=== PATIENT | female | born 1960 | race Caucasian/White ===

== ENCOUNTER 2019-03-16 11:32 | Observation (INO) | payer BC ==
[~2019-03-16] VITALS: Ht 154.9 cm; Wt 72.7 kg
[2019-03-16] VITALS (16 sets, daily range): BP systolic 126–154; BP diastolic 65–79; PULSE 63–85; RESP 13–22; Ht 154.9 cm; Wt 72.7 kg
[~2019-03-16 11:32] MED LIST: CALC-72 PO
--- NOTE | 2019-03-16 11:40 | HPN ---
Date/Time of Note Date/Time of Note DATE: 03/16/19 TIME: 11:40 Interval H&P Admission Note Pt. seen H&P reviewed: No system changes SHLOMO HOLLY MD Mar 16, 2019 11:40
--- NOTE | 2019-03-16 14:55 | PREAC ---
Date/Time of Note Date/Time of Note DATE: 03/16/19 TIME: 14:53 Anesthesia Eval and Record Evaluation Time Pre-Procedure Interview DATE: 03/16/19 TIME: 14:53 Age 58 Sex female NPO: 8 hrs Preoperative diagnosis thyroid mass Planned procedure total thyroidectomy Past Medical History Past Medical History: Includes Endo: Hypothyroid Surgery & Anesthesia Issues No known issue Meds Anticoagulation: No Beta Vikas within 24 hr: No Reason Beta Vikas not given: Pt. not on B-Vikas Meds reviewed: Yes Allergies Coded Allergies: No Known Allergy (Unverified , 03/15/19) Allergies Reviewed: Yes Labs/Studies Labs Reviewed: Reviewed by anesthesiologist test: Negative Pre-procedure Exam Last vitals Vital Signs Date Temp Pulse Resp B/P (MAP) Pulse Ox O2 O2 Flow FiO2 Time Delivery Rate 03/16/19 97.6 63 16 126/79 97 Room Air 12:23 (95) Airway: Adequate mouth opening, Adequate thyromental dist Mallampati: Mallampati II Teeth: Normal Lung: Normal Heart: Normal ASA Physical Status ASA physical status: 2 Emergency: None Planned Anesthetic General/MAC: ETT Planned Pain Management Parenteral pain med Pre-operative Attestations Prior to commencing anesthesia and surgery, the patient was re-evaluated, there was verification of: *The patient's identity *The results of appropriate recent lab work and preoperative vital signs *The above evaluation not changing prior to induction *Anesthetic plan, risk benefits, alternative and complications discussed with patient/family; questions answered; patient/family understands, accepts and wishes to proceed. MARIO DAMON Mar 16, 2019 14:55
[2019-03-16] MEDS ORDERED: THROMBIN 5000 UNIT (RECOTHROM) VIAL ONE (15:27)
[2019-03-16] MEDS ORDERED: LIDOCAINE 1%/EPI 30 ML INJ ONE (15:27)
[2019-03-16] MEDS ORDERED: GELATIN SIZE 100 SPONGE ONE (15:28)
[2019-03-16] MEDS ORDERED: FENTAnyl 50 MCG/ML VIAL ONE (15:49)
[2019-03-16] MEDS ORDERED: LIDOCAINE 2% (SDV) 5 ML INJ ONE (15:56)
[2019-03-16] MEDS ORDERED: SUCCINYLCHOLINE CHLORIDE 100 MG/5 ML SYG IV ONE (15:56)
[2019-03-16] MEDS ORDERED: CEFAZOLIN 1 GM INJ ONE (15:56)
[2019-03-16] MEDS ORDERED: PROPOFOL 20 ML ONE (15:56)
[2019-03-16] MEDS ORDERED: DEXAMETHASONE 4 MG/ML 5 ML INJ ONE (15:57)
[2019-03-16] MEDS ORDERED: ONDANSETRON 4 MG INJ ONE (15:58)
[2019-03-16] MEDS ORDERED: morphine 10 MG INJ ONE (16:04)
--- NOTE | 2019-03-16 19:04 | SIPON ---
Date/Time of Note Date/Time of Note DATE: 03/16/19 TIME: 19:03 Operative Report Preoperative Diagnosis Thyroid cancer Postoperative Diagnosis Same Operation/Procedure Performed Total thyroidectomy with central and superior mediastinal dissection Surgeon Alonzo Holly MD and Chava Gao MD retail assistant manager None Anesthesia: general Estimated blood loss: minimal Transfusion Required none Specimen Total thyroidectomy Grafts/Implants none Complications none ALONZO HOLLY MD Mar 16, 2019 19:04
--- NOTE | 2019-03-16 19:05 | PAC ---
Date/Time of Note Date/Time of Note DATE: 03/16/19 TIME: 19:05 Post-Anesthesia Notes Post-Anesthesia Note Last documented vital signs Vital Signs Date Temp Pulse Resp B/P (MAP) Pulse Ox O2 O2 Flow FiO2 Time Delivery Rate 03/16/19 97.6 63 16 126/79 97 Room Air 1905 (95) Activity: WNL Respiratory function: WNL Cardiovascular function: WNL Mental status: Baseline Pain reasonably controlled: Yes Hydration appropriate: Yes Nausea/Vomiting absent: Yes MARIO DAMON Mar 16, 2019 19:05
--- NOTE | 2019-03-16 19:15 | OPR ---
Date/Time of Note Date/Time of Note DATE: 03/16/19 TIME: 19:04 Operative Report Procedure Date: Mar 16, 2019 Preoperative Diagnosis Thyroid cancer Postoperative Diagnosis Same Operation/Procedure Performed Total thyroidectomy with central and superior mediastinal dissection Surgeon Alonzo Holly MD and Chava Gao MD Finishing Machine Tender None Anesthesia Type: general Estimated Blood Loss: minimal Transfusion none Specimen Total thyroid Grafts/Implants none Complications none Pt Condition Post Procedure: stable Disposition: PACU Indications The patient is a 58-year-old female with a history of a left thyroid nodule with an FNA consistent with carcinoma. Recommendation was made for surgery. We discussed potentially doing a hemithyroidectomy if there is no obvious extracapsular invasion. She consented for a total thyroidectomy if we indeed found the tumor to be grossly involved with adjacent structures. The risks, benefits and alternatives of surgery were discussed which include but not limited to bleeding, infection, pain, scar, change in voice, damage to the either the recurrent or superior laryngeal nerves, need for lifelong hormone replacement, hypoparathyroidism, recurrence of cancer, and need for adjuvant therapy. She understood these and signed consent. Procedure Description After informed consent was obtained, the patient was brought back to the operating room. She was intubated with a laryngeal nerve monitoring tube and sedated. The automated access systems technician was present for the entire case. Once sedated, the patient neck was extended with a shoulder roll. A 6 cm incision was marked in a relaxed skin tension line below the cricoid cartilage. The area was prepped and draped in usual sterile fashion. A 15 blade was used to make the incision down through the platysmal layer. The strap muscles were then divided in the midline. Medially we encountered that the strap muscles were densely adherent to the left isthmus nodule. We first turned our attention to the right side. The strap muscles were retracted laterally and a tonsil clamp was used to retract the superior pole inferiorly. Care was taken to stay adjacent to the thyroid capsule. The superior pole vessels were dissected and ligated with the harmonic scalpel. Next we turned our attention to the middle pole vessels which we ligated with the harmonic scalpel followed by the inferior pole vessels. As we rotated the gland medially we identified the inferior parathyroid gland and preserved with its blood supply intact. We then identified the recurrent rene ngeal nerve in the tracheoesophageal groove and stimulated to confirm its presence. We then followed the nerve up towards the larynx. We then identified the superior parathyroid gland and preserved with its blood supply intact. The remaining attachments of the thyroid at Navarrete's ligament were ligated. We then turned our attention to the left side. A cuff of strap muscle was taken in order to free up the firm left-sided nodule from the strap muscles upon doing so we were then able to visualize the superior pole which we dissected out and ligated with harmonic scalpel. We then found that there was an additional nodule inferior to the nodule in question in the superior mediastinum that was densely adherent, holding the gland down. This limited the mobility of the gland. We therefore then elected to find the nerve at the upper tracheoesophageal groove. This was done very carefully until we came down and identified the nerve. This stimulated very well. We then followed the nerve down towards the mediastinum. This was a long tedious dissection that took approximately 1-1/2 hours. By doing so we were able to slowly dissect the 2 rock-hard nodules away from the nerve. We were also able to dissect them free from the superior mediastinal structures. We were able to preserve the superior parathyroid gland with its blood supply intact. However we did not visualize the inferior parathyroid gland on that side. Once the entire mass was removed the specimen was marked. The area was irrigated profusely with saline. Both nerve stimulated at the end of the procedure. Surgicel was placed in the wound bed after the wound was irrigated. The wound was then closed in multiple layers with a 3-0 chromic suture for the strap muscles, the deep dermis and platysma. 5-0 Monocryl in a subcuticular fashion was used to close the skin. Mastisol, Steri-Strips, Telfa and Tegaderm placed on the skin. The patient was extubated by anesthesia and brought to the recovery room in stable condition. ALONZO HOLLY MD Mar 16, 2019 19:15
--- NOTE | 2019-03-16 19:18 | SIPON ---
Date/Time of Note Date/Time of Note DATE: 03/16/19 TIME: 19:15 Operative Report Preoperative Diagnosis Papillary thyroid cancer Postoperative Diagnosis Papillary thyroid cancer Operation/Procedure Performed Total thyroidectomy Mediastinal dissection Surgeon Alonzo Leone diploma dental assistant Chava Gao Anesthesia: general Estimated blood loss: 10 - 50 ml's Transfusion Required none Specimen Total thyroidectomy Grafts/Implants none Complications none CHAVA GAO MD Mar 16, 2019 19:18
[2019-03-16] MEDS ORDERED: ONDANSETRON 4 MG INJ IV PRN ×3 (19:30→20:30)
[2019-03-16] MEDS ORDERED: HYDROCODONE/APAP (5/325) TAB PO PRN ×2 (19:30→20:30)
[2019-03-16] MEDS ORDERED: DIPHENHYDRAMINE 50 MG INJ IV PRN (19:30)
[2019-03-16] MEDS ORDERED: EPHEDrine 25 MG/5 ML SYG IV PRN (19:30)
[2019-03-16] MEDS ORDERED: METOCLOPRAMIDE 10 MG INJ IV PRN (19:30)
[2019-03-16] MEDS ORDERED: ACETAMINOPHEN 325 MG TAB PO PRN (19:30)
[2019-03-16] MEDS ORDERED: ALBUTEROL 0.083% (NEB) 2.5 MG/3 ML AMP HHN PRN (19:30)
[2019-03-16] MEDS ORDERED: ALBUMIN HUMAN 5% 250 ML IV PRN (19:30)
[2019-03-16] MEDS ORDERED: FENTAnyl 50 MCG/ML VIAL IV PRN ×3 (19:30)
[2019-03-16] MEDS ORDERED: HYDROmorphONE 1 MG/5 ML IV SYRINGE IV PRN ×3 (19:30)
[2019-03-16] MEDS ORDERED: LABETALOL HCL 20MG INJ IV PRN (19:30)
[2019-03-16] MEDS ORDERED: hydrALAzine 20 MG INJ IV PRN ×2 (19:30→23:30)
[2019-03-16] MEDS ORDERED: MEPERIDINE 25 MG INJ IV PRN (19:30)
[2019-03-16] MEDS ORDERED: OXYCODONE/ACETAMINOPHEN (5/325) TAB PO PRN ×2 (19:30)
[2019-03-16] MEDS ORDERED: SOD CHLORIDE 0.9% 1,000 ML IV SCH (20:21)
[2019-03-16] MEDS ORDERED: NACL 0.9% 3 ML SYG IV SCH (20:30)
[2019-03-16] MEDS ORDERED: BISACODYL (EC) 5 MG TAB PO PRN (20:30)
[2019-03-16] MEDS ORDERED: DOCUSATE SODIUM 100 MG CAP PO PRN (20:30)
[2019-03-16] MEDS ORDERED: morphine 2 MG INJ IV PRN (20:30)
[2019-03-16] MEDS: D5W-0.45 NACL + KCL 20 MEQ 1,000 ML IV SCH (20:49)
--- NOTE | 2019-03-16 20:55 | HP ---
Date/Time of Note Date/Time of Note DATE: 03/16/19 TIME: 20:55 Assessment/Plan VTE Prophylaxis Risk score (from Ns)>0 risk: 3 SCD applied (from Ns): Yes Pharmacological prophylaxis: NA/contraindicated Pharm contraindication: low risk/ambulating Lines/Catheters IV Catheter Type (from Nrsg): Peripheral IV Urinary Cath still in place: No Assessment/Plan Hospital Course This is a 58-year-old female being [facility] for: #1 papillary thyroid carcinoma: Patient is status post total thyroidectomy. POD #0. Continue pain management. Resume p.o. diet. Await PTH result. A.m. calcium and albumin labs. Patient has been initiated on Synthroid in the a.m. Patient also be started on Tums 1000 mg p.o. 3 times daily at the discretion of the ENT. Potential discharge in the a.m. with follow-up in [address] Goa in his office. Patient already has prescriptions for Synthroid sent. #2 obesity: We will check hemoglobin A 1C, lipid panel, TSH #3 DVT GI prophylaxis: SCDs, no GI prophylaxis indicated Further treatment strategy will be implemented as per the clinical course. HPI/ROS Admit Date/Time Admit Date/Time Mar 16, 2019 at 19:21 Hx of Present Illness Chief complaint: Thyroid nodule This is a 58-year-old female who was diagnosed approximately in February with papillary thyroid carcinoma who presented for elective thyroidectomy. Patient is currently status post total thyroidectomy. Patient is doing well postop she does report discomfort at the surgery site. Denies any nausea vomiting or diarrhea. Patient states that she noticed a lump in her thyroid approximately 6 months ago and had a biopsy done February. She denied any fevers or weight loss over the last 6 months. Her surgery was performed by Dr. Wilkins: Dr. Chava Gao. I did communicate with Dr. Gao and plan was to get a PTH level stat. Initiate the patient on Tums 1000 mg 3 times daily. Will be getting a calcium and albumin level in the a.m. Patient will be started on Synthroid in the a.m. Allergies: NKDA Medications: No prior meds ROS Const: As per HPI Eyes : No pain discharge or redness or change in visual acuity ENT: As per HPI Respiratory: No shortness of breath, cough, sputum, wheezing, or pleuritic pain Cardiovascular: No chest pain, palpitation, PND, or edema GI : no change in appetite, abdominal pain, nausea, vomiting, diarrhea, constipation, or change in the color his stool Genitourinary: No dysuria, hematuria, flank pain , discharge or CVA tenderness Musculoskeletal: No joint pain, back pain, neck pain, restricted range of motion in neck or joints Skin: No rash, bruising or hives Neuro: No headache, dizziness, syncope, seizure, focal weakness Endocrine: No polyuria, polydipsia, temperature intolerance Psych: No hallucination, depression, anxiety or suicidal ideation PMH/Family/Social Past Medical History Papillary thyroid cancer Medications Current Medications Hydromorphone HCl (Dilaudid) 0.2 mg PACU PRN IV MILD PAIN 1-3; Start 03/16/19 at 19:30; Stop 03/16/19 at 23:59 Hydromorphone HCl (Dilaudid) 0.4 mg PACU PRN IV MOD PAIN 4-6; Start 03/16/19 at 19:30; Stop 03/16/19 at 23:59 Hydromorphone HCl (Dilaudid) 0.6 mg PACU PRN IV SEVERE PAIN 7-10; Start 03/16/19 at 19:30; Stop 03/16/19 at 23:59 Fentanyl (Sublimaze) 25 mcg PACU ORDER PRN IV MILD PAIN 1-3; Start 03/16/19 at 19:30; Stop 03/16/19 at 23:59 Fentanyl (Sublimaze) 50 mcg PACU ORDER PRN IV MOD PAIN 4-6 Last administered on 03/16/19at 19:17; Admin Dose 50 MCG; Start 03/16/19 at 19:30; Stop 03/16/19 at 23:59 Fentanyl (Sublimaze) 75 mcg PACU ORDER PRN IV SEVERE PAIN 7-10; Start 03/16/19 at 19:30; Stop 03/16/19 at 23:59 Oxycodone/ Acetaminophen (Percocet (5/ 325)) 1 tab PACU ORDER PRN PO .PAIN 1-5; Start 03/16/19 at 19:30; Stop 03/16/19 at 23:59 Oxycodone/ Acetaminophen (Percocet (5/ 325)) 2 tab PACU ORDER PRN PO .PAIN 6-10; Start 03/16/19 at 19:30; Stop 03/16/19 at 23:59 Ondansetron HCl (Zofran Inj) 4 mg PACU ORDER PRN IV NAUSEA/VOMITING; Start 03/16/19 at 19:30; Stop 03/16/19 at 23:59 Metoclopramide HCl (Reglan) 10 mg PACU ORDER PRN IV NAUSEA/VOMITING; Start 03/16/19 at 19:30; Stop 03/16/19 at 23:59 Labetalol HCl (Labetalol) 5 mg PACU ORDER PRN IV HIGH BLOOD PRESSURE; Start 03/16/19 at 19:30; Stop 03/16/19 at 23:59 Hydralazine HCl (Apresoline) 5 mg PACU ORDER PRN IV HIGH BLOOD PRESSURE; Start 03/16/19 at 19:30; Stop 03/16/19 at 23:59 Ephedrine Sulfate 5 mg PACU ORDER PRN IV BLOOD PRESSURE SUPPORT; Start 03/16/19 at 19:30; Stop 03/16/19 at 23:59 Albumin Human 250 ml @ 750 mls/hr PACU ORDER PRN IV BP SUPPORT; Start 03/16/19 a t 19:30; Stop 03/16/19 at 23:59 Albuterol (Proventil 0.083% (Neb)) 2.5 mg PACU ORDER PRN HHN .WHEEZING; Start 03/16/19 at 19:30; Stop 03/16/19 at 23:59 Meperidine HCl (Demerol) 25 mg PACU ORDER PRN IV .RIGORS; Start 03/16/19 at 19:30; Stop 03/16/19 at 23:59 Diphenhydramine HCl (Benadryl) 25 mg PACU ORDER PRN IV .PRURITUS; Start 03/16/19 at 19:30; Stop 03/16/19 at 23:59 Acetaminophen (Tylenol Tab) 650 mg Q6H PRN PO MILD PAIN(1-3)OR ELEVATED TEMP; Start 03/16/19 at 19:30 Acetaminophen/ Hydrocodone Bitart ([place] (5/325)) 1 tab Q4H PRN PO PAIN LEVEL 6-10 Last administered on 03/16/19at 20:49; Admin Dose 1 TAB; Start 03/16/19 at 19:30 Ondansetron HCl (Zofran Inj) 4 mg Q6H PRN IV NAUSEA AND/OR VOMITING; Start 03/16/19 at 19:30 Potassium Chloride/Dextrose/ Sod Cl 1,000 ml @ 100 mls/hr Q10H IV Last administered on 03/16/19at 20:49; Admin Dose 100 MLS/HR; Start 03/16/19 at 19:21 Levothyroxine Sodium (Synthroid) 75 mcg DAILY@06 PO ; Start 03/17/19 at 06:00 Coded Allergies: No Known Allergy (Unverified , 03/15/19) Past Surgical History Total thyroidectomy with central and superior mediastinal dissection Family History Significant Family History: cancer (Thyroid cancer in her sisters, cervical cancer in her mother) Social History Alcohol Use: none Smoking Status: Never smoker Drug Use: none Exam/Review of Systems Vital Signs Vitals Vital Signs Date Temp Pulse Resp B/P (MAP) Pulse Ox O2 O2 Flow FiO2 Time Delivery Rate 03/16/19 98.8 85 18 154/76 94 Room Air 20:28 (102) 03/16/19 2.0 19:31 Exam Exam General: Currently lying in bed in no acute distress HEENT: Atraumatic, normocephalic. The pupils are equal, round and reactive. E xtraocular motor are intact, surgical dressing clean dry and intact over surgical site Neck: Supple with full range of motion. No rigidity or meningismus Chest: Nontender Lungs: Clear to auscultation bilaterally no crackles rales or wheezing Heart: Normal S1-S2, Regular rhythm and rate. No murmur, S3, or S4 Abdomen: Soft , nontender, nondistended , bowel sounds are present. No guarding no rebound tenderness , No masses or organomegaly. No costovertebral temporal angle mass Extremities: Normal to inspection, no edema no cyanosis Neurologic: Normal mental status, speech normal, cranial nerves II through XII are intact, motor and sensory are intact, no focal weakness MIRIAM BACON Mar 16, 2019 20:55
[2019-03-16] MEDS: CALCIUM CARBONATE 500 MG CHEW TAB PO SCH (23:10)
[2019-03-17 01:05] VITALS: BP 151/72; PULSE 81; RESP 18
[2019-03-17] MEDS: ACETAMINOPHEN 325 MG TAB PO PRN ×2 (03:03→11:45)
[2019-03-17] MEDS: D5W-0.45 NACL + KCL 20 MEQ 1,000 ML IV SCH (05:29)
[2019-03-17] MEDS ORDERED: LEVOTHYROXINE 75 MCG TAB PO SCH (06:00)
--- NOTE | 2019-03-17 07:58 | PN ---
Date/Time of Note Date/Time of Note DATE: 03/17/19 TIME: 07:53 Assessment/Plan VTE Prophylaxis Risk score (from Ns)>0 risk: 3 SCD applied (from Ns): Yes Pharmacological prophylaxis: NA/contraindicated Pharm contraindication: low risk/ambulating Lines/Catheters [facility] Peripheral IV Urinary Cath still in place: No Assessment/Plan Assessment/Plan 58-year-old F with papillary thyroid cancer status post total thyroidectomy Doing well postop day 1 Plan DC home Previously sent prescription for Synthroid 75, Zofran, [place] Will need new prescription for calcium carbonate with vitamin D [id number] Plan for taper of 2 tab TID 1 week, 2 tab BID 1 week, 2 tab daily 1 week Will check PTH as outpatient Discussed wound care and she will follow-up 1 week Result Diagram: 03/17/19 0513 03/17/19 0513 Results 24hrs Laboratory Tests Test 03/16/19 19:27 03/16/19 23:05 03/17/19 05:13 03/17/19 05:15 Parathyroid Hormone 13.7 L 13.0 L White Blood Count 12.7 H 11.1 H Red Blood Count 4.49 4.49 Hemoglobin 13.2 13.1 Hematocrit 39.5 39.3 Mean Corpuscular Volume 88.0 87.5 Mean Corpuscular 29.4 29.2 Hemoglobin Mean Corpuscular 33.4 33.3 Hemoglobin Concent Red Cell Distribution 13.0 13.0 Width Platelet Count 295 320 Mean Platelet Volume 9.9 10.3 Immature Granulocytes % 0.400 0.400 Neutrophils % 91.7 H 84.8 H Lymphocytes % 7.0 L 11.1 L Monocytes % 0.8 3.6 Eosinophils % 0.0 0.0 Basophils % 0.1 0.1 Nucleated Red Blood 0.0 0.0 Cells % Immature Granulocytes # 0.050 H 0.040 H Neutrophils # 11.7 H 9.4 H Lymphocytes # 0.9 1.2 Monocytes # 0.1 L 0.4 Eosinophils # 0.0 0.0 Basophils # 0.0 0.0 Nucleated Red Blood 0.0 0.0 Cells # Sodium Level 137 140 Potassium Level 4.1 4.5 Chloride Level 101 102 Carbon Dioxide Level 29 29 Anion Gap 7 9 Blood Urea Nitrogen 14 12 Creatinine 0.67 0.59 Est Glomerular Filtrat > 60 > 60 Rate mL/min Glucose Level 133 129 Calcium Level 8.8 9.3 Total Bilirubin 0.4 0.5 Direct Bilirubin 0.00 0.00 Indirect Bilirubin 0.4 0.5 Aspartate Amino 47 H 85 H Transf (AST/SGOT) Alanine 66 98 H Aminotransferase (ALT/SG PT) Alkaline Phosphatase 98 84 Total Protein 7.6 7.4 Albumin 4.3 4.2 Globulin 3.30 H 3.20 Albumin/Globulin Ratio 1.30 1.31 Hemoglobin A1c 5.5 Magnesium Level 1.9 Ionized Calcium 1.1 (Measured) Subjective 24 Hr Interval Summary Free Text/Dictation Patient doing well postop day 1 status post total thyroidectomy Voice is strong No numbness or tingling Minimal pain, took one [place] Exam/Review of Systems Exam Vitals Vital Signs Date Temp Pulse Resp B/P (MAP) Pulse Ox O2 O2 Flow FiO2 Time Delivery Rate 03/17/19 98.4 81 18 151/72 92 01:05 (98) 03/16/19 Room Air 20:28 03/16/19 2.0 19:31 Intake and Output 03/16/19 03/16/19 03/17/19 1515:00 23:00 07:00 IntakeIntake Total 1600 ml 671 ml OutputOutput Total 540 ml 800 ml BalanceBalance 1060 ml -129 ml Exam Well-developed, well nourished Voice strong Neck: Dressing in place clean dry and intact, no swelling or hematoma Results Results 24hrs Laboratory Tests Test 03/16/19 19:27 03/16/19 23:05 03/17/19 05:13 03/17/19 05:15 Parathyroid Hormone 13.7 L 13.0 L White Blood Count 12.7 H 11.1 H Red Blood Count 4.49 4.49 Hemoglobin 13.2 13.1 Hematocrit 39.5 39.3 Mean Corpuscular Volume 88.0 87.5 Mean Corpuscular 29.4 29.2 Hemoglobin Mean Corpuscular 33.4 33.3 Hemoglobin Concent Red Cell Distribution 13.0 13.0 Width Platelet Count 295 320 Mean Platelet Volume 9.9 10.3 Immature Granulocytes % 0.400 0.400 Neutrophils % 91.7 H 84.8 H Lymphocytes % 7.0 L 11.1 L Monocytes % 0.8 3.6 Eosinophils % 0.0 0.0 Basophils % 0.1 0.1 Nucleated Red Blood 0.0 0.0 Cells % Immature Granulocytes # 0.050 H 0.040 H Neutrophils # 11.7 H 9.4 H Lymphocytes # 0.9 1.2 Monocytes # 0.1 L 0.4 Eosinophils # 0.0 0.0 Basophils # 0.0 0.0 Nucleated Red Blood 0.0 0.0 Cells # Sodium Level 137 140 Potassium Level 4.1 4.5 Chloride Level 101 102 Carbon Dioxide Level 29 29 Anion Gap 7 9 Blood Urea Nitrogen 14 12 Creatinine 0.67 0.59 Est Glomerular Filtrat > 60 > 60 Rate mL/min Glucose Level 133 129 Calcium Level 8.8 9.3 Total Bilirubin 0.4 0.5 Direct Bilirubin 0.00 0.00 Indirect Bilirubin 0.4 0.5 Aspartate Amino 47 H 85 H Transf (AST/SGOT) Alanine 66 98 H Aminotransferase (ALT/SG PT) Alkaline Phosphatase 98 84 Total Protein 7.6 7.4 Albumin 4.3 4.2 Globulin 3.30 H 3.20 Albumin/Globulin Ratio 1.30 1.31 Hemoglobin A1c 5.5 Magnesium Level 1.9 Ionized Calcium 1.1 (Measured) Medications Medication Current Medications Potassium Chloride/Dextrose/ Sod Cl 1,000 ml @ 100 mls/hr Q10H IV Last administered on 03/17/19at 05:29; Admin Dose 100 MLS/HR; Start 03/16/19 at 19:21 Levothyroxine Sodium (Synthroid) 75 mcg DAILY@06 PO Last administered on 03/17/19at 05:27; Admin Dose 75 MCG; Start 03/17/19 at 06:00 IV Flush (NS 3 ml) 3 ml PER PROTOCOL IV ; Start 03/16/19 at 20:30 Ondansetron HCl (Zofran Inj) 4 mg Q6H PRN IV NAUSEA/VOMITING; Start 03/16/19 at 20:30 Acetaminophen (Tylenol Tab) 650 mg Q6H PRN PO .PAIN 1-3 OR TEMP Last administered on 03/17/19at 03:03; Admin Dose 650 MG; Start 03/16/19 at 20:30 Acetaminophen/ Hydrocodone Bitart ([place] (5/325)) 1 tab Q6H PRN PO .MOD PAIN 4- 6; Start 8/7/19 at 20:30 Morphine Sulfate (morphine) 2 mg Q4H PRN IV .SEVERE PAIN 7-10; Start 03/16/19 at 20:30 Docusate Sodium (Colace) 100 mg Q12H PRN PO .CONSTIPATION; Start 03/16/19 at 20:30 Bisacodyl (Dulcolax) 5 mg DAILY PRN PO .CONSTIPATION; Start 03/16/19 at 20:30 Calcium Carbonate (Tums) 1,000 mg TID PO Last administered on 03/16/19at 23:10; Admin Dose 1,000 MG; Start 03/16/19 at 23:00 Hydralazine HCl (Apresoline) 10 mg Q4H PRN IV ELEVATED BLOOD PRESSURE; Start 03/16/19 at 23:30 DAVID DAWKINS MD Mar 17, 2019 07:58
[2019-03-17 08:09] VITALS: BP 124/66; PULSE 64; RESP 17
[2019-03-17] MEDS: CALCIUM CARBONATE 500 MG CHEW TAB PO SCH (08:39)
--- NOTE | 2019-03-17 12:11 | PDOCDIS ---
Discharge Instructions DIAGNOSIS Discharge Diagnosis Papillary thyroid cancer s/p thyroidectomy CONDITION [id number] Patient Condition: [id number] Good HOME CARE INSTRUCTIONS: [id number] Diet Instructions: [id number] Regular ACTIVITY: [id number] Activity Restrictions: [id number] No Restrictions FOLLOW UP/APPOINTMENTS Follow-up Plan 1. Take all medications as prescribed including synthroid (levothroxine) and calcium-vitamin D tablets. 2. You should follow a special taper for the calcium-vitamin D tablets: 2 tabs thrice daily for 1 week, then 2 tabs twice daily for 1 week, then 2 tabs daily for [address] Gao in clinic as scheduled. Get labs done prior. NELLY ELAM MD Mar 17, 2019 12:11
--- NOTE | 2019-03-17 16:18 | DS ---
Date/Time of Note Date/Time of Note DATE: 03/17/19 TIME: 16:18 Discharge Summary Admission/Discharge Info Admit Date/Time Mar 16, 2019 at 19:21 Discharge Date/Time Mar 17, 2019 at 12:55 Discharge Diagnosis Papillary thyroid cancer s/p thyroidectomy Patient Condition: Good Hx of Present Illness Chief complaint: Thyroid nodule This is a 58-year-old female who was diagnosed approximately in February with papillary thyroid carcinoma who presented for elective thyroidectomy. Patient is currently status post total thyroidectomy. Patient is doing well postop she does report discomfort at the surgery site. Denies any nausea vomiting or diarrhea. Patient states that she noticed a lump in her thyroid approximately 6 months ago and had a biopsy done February. She denied any fevers or weight loss over the last 6 months. Her surgery was performed by Dr. Wilkins: Dr. Chava Gao. I did communicate with Dr. Gao and plan was to get a PTH level stat. Initiate the patient on Tums 1000 mg 3 times daily. Will be getting a calcium and albumin level in the a.m. Patient will be started on Synthroid in the a.m. Allergies: NKDA Medications: No prior meds Hospital Course The patient tolerated diet well. She will be discharge on synthroid 75 mcg daily; as well as a tapering dose of Ca-Vit D. Home Meds Active Scripts Calcium Carbonate-Vitamin D3 (Calcium 500 + Vit D 200 Caplet) 1 Each Tablet, 2 TAB PO TID, #84 TAB Prov:NELLY ELAM MD 03/17/19 Follow-up Plan 1. Take all medications as prescribed including synthroid (levothroxine) and calcium-vitamin D tablets. 2. You should follow a special taper for the calcium-vitamin D tablets: 2 tabs thrice daily for 1 week, then 2 tabs twice daily for 1 week, then 2 tabs daily for [address] Gao in clinic as scheduled. Get labs done prior. Primary Care Provider Not On Staff Doctor Time spent on discharge: > 30 minutes Pending Labs Laboratory Tests Test 03/16/19 19:27 03/16/19 23:05 03/17/19 05:13 03/17/19 05:15 Parathyroid 13.7 13.0 Hormone pg/ml (24.0-73. pg/ml (24.0-73 0) .0) White Blood 12.7 11.1 Count 10^3/ul (4.8-1 10^3/ul (4.8-1 0.8) 0.8) Red Blood 4.49 4.49 Count 10^6/ul (4.20- 10^6/ul (4.20- 5.40) 5.40) Hemoglobin 13.2 13.1 g/dl (12.0-16. g/dl (12.0-16. 0) 0) Hematocrit 39.5 39.3 % (37.0-47.0) % (37.0-47.0) Mean 88.0 87.5 Corpuscular fl (82.0-101.0 fl (82.0-101.0 Volume ) ) Mean 29.4 29.2 Corpuscular pg (29.0-33.0) pg (29.0-33.0) Hemoglobin Mean 33.4 33.3 Corpuscular g/dl (32.0-37. g/dl (32.0-37. Hemoglobin Conc 0) 0) ent Red Cell 13.0 13.0 Distribution % (11.5-14.5) % (11.5-14.5) Width Platelet Count 295 320 10^3/UL (140-4 10^3/UL (140-4 15) 15) Mean Platelet 9.9 10.3 Volume fl (7.4-10.4) fl (7.4-10.4) Immature 0.400 0.400 Granulocytes % % (0.001-0.429 % (0.001-0.429 ) ) Neutrophils % 91.7 84.8 % (39.0-77.0) % (39.0-77.0) Lymphocytes % 7.0 11.1 % (15.0-51.0) % (15.0-51.0) Monocytes % 0.8 3.6 % (0.0-11.0) % (0.0-11.0) Eosinophils % 0.0 0.0 % (0.0-7.0) % (0.0-7.0) Basophils % 0.1 0.1 % (0.0-2.0) % (0.0-2.0) Nucleated Red 0.0 0.0 Blood Cells % /100WBC (0.0-0 /100WBC (0.0-0 .0) .0) Immature 0.050 0.040 Granulocytes # 10^3/ul (0.0-0 10^3/ul (0.0-0 .031) .031) Neutrophils # 11.7 9.4 10^3/ul (1.6-7 10^3/ul (1.6-7 .5) .5) Lymphocytes # 0.9 1.2 10^3/ul (0.8-2 10^3/ul (0.8-2 .9) .9) Monocytes # 0.1 0.4 10^3/ul (0.3-0 10^3/ul (0.3-0 .9) .9) Eosinophils # 0.0 0.0 10^3/ul (0.0-0 10^3/ul (0.0-0 .5) .5) Basophils # 0.0 0.0 10^3/ul (0.0-0 10^3/ul (0.0-0 .1) .1) Nucleated Red 0.0 0.0 Blood Cells # 10^3/ul (0.0-0 10^3/ul (0.0-0 .0) .0) Sodium Level 137 140 mmol/L (135-14 mmol/L (135-14 4) 4) Potassium 4.1 4.5 Level mmol/L (3.5-5. mmol/L (3.5-5. 1) 1) Chloride Level 101 102 mmol/L (97-110 mmol/L (97-110 ) ) Carbon Dioxide 29 29 Level mmol/L (21-31) mmol/L (21-31) Anion Gap 7 (5-13) 9 (5-13) Blood Urea 14 12 Nitrogen mg/dl (7-20) mg/dl (7-20) Creatinine 0.67 0.59 mg/dl (0.44-1. mg/dl (0.44-1. 00) 00) Est Glomerular > 60 > 60 Filtrat mL/min (>60) mL/min (>60) Rate mL/min Glucose Level 133 129 mg/dl (70-220) mg/dl (70-220) Calcium Level 8.8 9.3 mg/dl (8.4-10. mg/dl (8.4-10. 2) 2) Total 0.4 0.5 Bilirubin mg/dl (0.2-1.3 mg/dl (0.2-1.3 ) ) Direct 0.00 0.00 Bilirubin mg/dl (0.00-0. mg/dl (0.00-0. 20) 20) Indirect 0.4 0.5 Bilirubin mg/dl (0-1.1) mg/dl (0-1.1) Aspartate Amino 47 85 Transf (AST/SGO IU/L (15-46) IU/L (15-46) T) Alanine 66 98 Aminotransferas IU/L (13-69) IU/L (13-69) e (ALT/SGPT) Alkaline 98 84 Phosphatase IU/L (42-121) IU/L (42-121) Total Protein 7.6 7.4 g/dl (6.1-8.1) g/dl (6.1-8.1) Albumin 4.3 4.2 g/dl (3.3-4.9) g/dl (3.3-4.9) Globulin 3.30 3.20 g/dl (1.3-3.2) g/dl (1.3-3.2) Albumin/Globuli 1.30 1.31 n Ratio Hemoglobin A1c 5.5 % (0-5.9) Magnesium 1.9 Level mg/dl (1.7-2.5 ) Ionized Calcium 1.1 (Measured) mmol/L (1.1-1. 4) NELLY ELAM MD Mar 17, 2019 16:18
== END 2019-03-17 12:55 | disposition home or self-care (01) ==
LOC: SDS 11:32 → 2NE 19:21
PROVIDERS: ADMIT Family Medicine; ATTEND Internal Medicine
DX: C73 Malignant neoplasm of thyroid gland (principal); E66.9 Obesity, unspecified; Z68.30 Body mass index [BMI] 30.0-30.9, adult
CPT/HCPCS: 60240; 80053; 82306; 82330; 83036; 83735; 83970; 85025; 88307; J0690; J1100; J2270; J2405; J3010; J3480; J7030; Z7500; Z7512; Z7610; G0378